=== PATIENT | male | born 1965 | race African-American/Black ===

== ENCOUNTER 2019-05-11 05:14 | Observation (INO) ==
[2019-05-11] MEDS ORDERED: ASPIRIN PO ONE (05:22)
[2019-05-11 06:11] LABS: BASO# 0.01 X1000 (0.0-0.2); BASO% 0.2 % (0.0-0.8); EOS# 0.23 X1000 (0.0-0.7); EOS% 3.8 % (0.0-10.0); HEMATOCRIT 36.1 % (42.0-52.0); HEMOGLOBIN 11.9 g/dL (14.0-18.0); LYMPH# 0.91 X1000 (1.2-3.4); LYMPH% 14.9 % (20.5-51.1); MCV 81.9 FL (81-99); MONO# 0.65 X1000 (0.11-0.59); MONO% 10.6 % (1.7-9.3); MPV 9.4 FL (7.4-10.4); NEUT# 4.31 X1000 (1.4-6.5); NEUT% 70.5 % (42.2-75.2); PLT 249 X1000 (130-400); RBC 4.41 XMIL (4.7-6.1); RDW 15.2 % (11.5-14.5); WBC 6.11 X1000 (4.8-10.8)
[2019-05-11] MEDS ORDERED: NORFLEX IV ONE (06:25)
[2019-05-11] MEDS ORDERED: TORADOL IV ONE (06:25)
--- NOTE | 2019-05-11 06:30 | PROVIDER DOCUMENTATION ---
HPI-Chest Pain - General Chief Complaint: Chest Pain Stated Complaint: CHEST PAIN/NECK/ARM PAIN Time Seen by Provider: 05/11/19 06:09 Source: patient Allergies/Adverse Reactions: Patient Allergies Allergy/AdvReac Type Severity Reaction Status Date / Time No Known Allergies Allergy Verified 02/18/19 10:21 Home Medications: Home Medication List Medication Instructions Recorded Confirmed Last Taken Type Cephalexin [Keflex] 500 mg PO Q8HR #21 cap 11/10/18 Unknown Rx Cyclobenzaprine [Flexeril] 10 mg PO QHS #7 tab 05/11/19 Unknown Rx - History of Present Illness-CP Nature of Presenting Problem: A 53 Y/O MALE PRESENTS WITH C/O LEFT NECK, SHOULDER AND RIB PAIN. STARTED AROUND 1030 PM AND HAS BEEN THERE SINCE. DENIES ANY INJURIES SOB OR FEVER OR CHILLS OR COUGH OR PAIN WITH DEEP BREATHES PER PT HE WAS [facility] THIS STARTED. HURTS TO RAISE LEFT ARM, TURN THE HEAD. IT IS ALSO TENDER TO TOUCH IN HIS LEFT RIBS IN THE AXILLARY AREA. Chest Pain Radiation: reports: neck, shoulders. denies: jaw, arms Quality of Pain: reports: sharp Severity in ED: moderate Onset/Duration: abrupt Timing: still present, getting worse Context/Activities at Onset: reports: vigorous activity Modifying Factors: improves with: immobilization, massage Associated Symptoms: denies: abdominal pain, back pain, diaphoresis, dizziness, fatigue, fever/chills, headache, heartburn, nausea, rash, shortness of breath, swelling/lump in chest, syncope, vomiting, weakness Nitro Today/Relief: no nitro taken today Aspirin Treatment Today: provided by ED Prior Chest Pain/Cardiac Workup: reports: no prior chest pain, no prior cardiac workup Similar Symptoms Previously?: No Recently Seen Here or By Another Healthcare Provider: No Review of Systems - Adult - REVIEW OF SYSTEMS - ADULT Constitutional: reports: no symptoms reported Eyes: reports: no symptoms reported Ears, Nose, Mouth & Throat: reports: no symptoms reported Cardiovascular: reports: see HPI Respiratory: reports: see HPI Gastrointestinal: reports: no symptoms reported Genitourinary: reports: no symptoms reported Musculoskeletal: reports: see HPI Integumentary: reports: no symptoms reported Neurological: reports: no symptoms reported Psychiatric: reports: no symptoms reported Endocrine: reports: no symptoms reported Hematologic/Lymphatic: reports: no symptoms reported Allergic/Immunologic: reports: no symptoms reported Past History - Adult - PAST MEDICAL HISTORY-ADULT Review of Records: reports: Old Records Reviewed, Nursing Assessment Review, Medications Reviewed, Social history reviewed & non-contributory. Major Childhood Illnesses: reports: denies history Cardiovascular: reports: denies history Respiratory: reports: denies history Gastrointestinal: reports: denies history Obstetrical/Gynecological: reports: denies history Genitourinary: reports: denies history Musculoskeletal: reports: denies history Neurological: reports: denies history Endocrine/Immune: reports: denies history Other Conditions: reports: denies history - PRIOR SURGERIES/PROCEDURES Surgical/Procedure History: reports: none - IMMUNIZATION STATUS Childhood Immunizations: See Nurse Assessment Flu Vaccine: See Nurse Assessment - FAMILY HISTORY Family History: diabetes Physical Exam-General - PHYSICAL EXAM-ADULT Initial Vital Signs Reviewed: Yes - CONSTITUTIONAL General Appearance: appears well, alert, mild distress - HEAD, EARS, NOSE, MOUTH & THROAT HENMT: normocephalic/atraumatic, moist mucous membranes, normal ENT inspection, pharynx normal - NECK Neck: supple, normal inspection, limited range of motion, tender lateral (LEFT, TRAPEZIUS DISTRIBUTION). negative: meningismus - RESPIRATORY Respiratory: lungs clear, normal breath sounds, no respiratory distress, no accessory muscle use - CARDIOVASCULAR Cardiovascular: normal peripheral pulses, regular rate, rhythm, no edema, no murmur - GASTROINTESTINAL (ABDOMEN) Abdominal Exam: non tender, soft - MUSCULOSKELETAL Back Exam: no vertebral tenderness Extremity: no pedal edema, no calf tenderness - SKIN Integumentary: warm/dry - NEUROLOGIC Neurologic: grossly normal - PSYCHIATRIC Psych/Mental Status: normal mood/affect, oriented x 3 - HEART Score HEART Score: History: Moderately Suspicious HEART Score: ECG: Normal HEART Score: Age: 45-65 Years HEART Score: Risk Factors for Atherosclerotic Disease: 1 or 2 Risk Factors HEART Score: Troponin: < or = Normal Limit Total HEART Score:: 3 Progress - PLAN OF CARE/RESULTS Progress/Plan/Lab Results: Vital Signs - 8 hr 05/11/19 05:20 05/11/19 05:47 05/11/19 06:03 Temperature 98.4 F Pulse Rate 81 73 71 Respiratory Rate 20 21 Blood Pressure 131/81 139/88 130/87 O2 Sat by Pulse Oximetry 98 100 99 05/11/19 06:10 05/11/19 06:33 05/11/19 06:50 Temperature Pulse Rate 72 68 60 Respiratory Rate 28 H 16 16 Blood Pressure 131/77 O2 Sat by Pulse Oximetry 100 98 99 05/11/19 07:03 Temperature Pulse Rate 74 Respiratory Rate 35 H Blood Pressure 126/84 O2 Sat by Pulse Oximetry 98 Laboratory Results - last 24 hr 05/11/19 05/11/19 05/11/19 05:30 05:30 05:30 WBC 6.11 RBC 4.41 L Hgb 11.9 L Hct 36.1 L MCV 81.9 MCH 27.0 MCHC 33.0 RDW Std Deviation 15.2 H Plt Count 249 MPV 9.4 Neut % (Auto) 70.5 Lymph % (Auto) 14.9 L [place] % (Auto) 10.6 H Eos % (Auto) 3.8 Baso % (Auto) 0.2 Neut # (Auto) 4.31 Lymph # (Auto) 0.91 L [place] # (Auto) 0.65 H Eos # (Auto) 0.23 Baso # (Auto) 0.01 D-Dimer, Quantitative Sodium 144 Potassium 3.8 Chloride 104 Carbon Dioxide 28 Anion Gap 12 BUN 17 Creatinine 1.6 H Estimated GFR/1.73 m2 55 BUN/Creatinine Ratio 11 Glucose 105 H Calculated Osmolality 289 Calcium 9.3 Total Bilirubin 0.32 AST 94 H ALT 109 H Alkaline Phosphatase 128 H Creatine Kinase 218 H Creatine Kinase Index 1.5 CK-MB (CK-2) 3.29 Troponin T < 0.010 Total Protein 7.7 Albumin 3.8 Globulin 3.9 Albumin/Globulin Ratio 1.0 05/11/19 05:30 WBC RBC Hgb Hct MCV MCH MCHC RDW Std Deviation Plt Count MPV Neut % (Auto) Lymph % (Auto) [place] % (Auto) Eos % (Auto) Baso % (Auto) Neut # (Auto) Lymph # (Auto) [place] # (Auto) Eos # (Auto) Baso # (Auto) D-Dimer, Quantitative 0.39 Sodium Potassium Chloride Carbon Dioxide Anion Gap BUN Creatinine Estimated GFR/1.73 m2 BUN/Creatinine Ratio Glucose Calculated Osmolality Calcium Total Bilirubin AST ALT Alkaline Phosphatase Creatine Kinase Creatine Kinase Index CK-MB (CK-2) Troponin T Total Protein Albumin Globulin Albumin/Globulin Ratio Orders Category Date Time Status CHEST-1 VIEW [RAD] Stat Exams 05/11/19 05:21 Completed CBC WITH ELECTRONIC DIFF [HEME] Stat Lab 05/11/19 05:30 Completed CK PROFILE [SP CHEM] Stat Lab 05/11/19 05:30 Completed COMPREHENSIVE METABOLIC PANEL [CHEM] Stat Lab 05/11/19 05:30 Completed D-DIMER [COAG] Stat Lab 05/11/19 05:30 Completed TROPONIN T Stat Lab 05/11/19 05:30 Completed Aspirin Med 05/11/19 05:22 Discontinued 325 mg PO NOW ONE Ketorolac [Toradol] Med 05/11/19 06:25 Discontinued 30 mg IV NOW ONE Ketorolac [Toradol] Med 05/11/19 06:32 Discontinued 60 mg IM NOW ONE Ns 1000 ml IV Bolus X1 Med 05/11/19 07:18 Ordered 0.9% Sodium Chloride Inj [Ns] 1,000 ml IV 999 mls/hr Orphenadrine [Norflex] Med 05/11/19 06:25 Discontinued 60 mg IV NOW ONE EKG [EKG] Stat Ther 05/11/19 05:22 Draft At recheck pt notes that he is still having CP and wants to be admitted. Pt also admits that he has used cocaine as recently as last week. Result Diagrams: 05/11/19 05:30 05/11/19 05:30 - CONSULTS/PCP/HOSPITALIST Notification #1 *Consult/PCP/Hospitalist*: Dr Slaughter Time Discussed: 10:15 Consult Disposition: Will see in ED, Admit - CHANGE OF SHIFT REPORT (ED Provider) 1 Report Given and Care Transferred to:: DR ADAME Time of Transfer: 07:00 Items Pending: Labs Departure - Departure Date of Disposition Decision: 05/11/19 Time of Disposition Decision: 10:19 DIAGNOSIS: Neck pain on left side, Renal insufficiency, Trapezius muscle strain, Chest pain Disposition: ADMITTED INPATIENT 09 Certified Medical Emergency: Emergent Condition: Stable Additional Freetext Instructions: ED Follow Up Instructions: You have been treated by a care provider in the Emergency Department. These instructions are being provided to you so you can have an understanding of how to care for yourself upon discharge. Upon discharge from the Emergency Department, you are responsible for making arrangements for follow-up care by a physician of your choice. Take all prescribed medications as directed. Return to the Emergency Department immediately for any new or worsening symptoms. You may call the Physician Referral phone number at [phone] to obtain a list of Physicians who are taking new patients. Prescriptions: Cyclobenzaprine [Flexeril] 10 mg PO QHS #7 tab Referrals and Follow-Ups: None,PCP [Primary Care Provider] - Discharge Education: Acute Kidney Injury, Adult, Chest Wall Pain, [id number] - Critical Care Note This patient required my direct & personal management of CC.: No Attestation - Physician/ XU Attestation Patient care was provided by Advanced Practice Provider:: No The physician spent face to face time with patient:: Yes Advanced Practice Provider documentation review:: Supervising physician onsite and consulted in the evaluation and care of this patient. The physician did have a face to face encounter with the patient.
[2019-05-11] MEDS ORDERED: TORADOL IM ONE (06:32)
[2019-05-11 06:39] LABS: ALBUMIN 3.8 g/dL (3.5-5.0); CALCIUM 9.3 mg/dL (8.8-10.2); CREATININE 1.6 mg/dL (0.7-1.2); POTASSIUM 3.8 mmol/L (3.5-5.1); TOTAL BILIRUBIN 0.32 mg/dL (0.20-1.00); TOTAL PROTEIN 7.7 g/dL (6.3-8.3)
--- NOTE | 2019-05-11 06:58 | Diag Imaging Result Doc PS360 ---
EXAM: CHEST-1 VIEW 05/11/2019 HISTORY: cp TECHNIQUE: AP portable upright at 0550 COMMENT: The upper lung zones appear clearer than on the previous study of 02/18/2019 but this is probably due to a more lordotic projection. There is an apparent granuloma in the left upper lobe. The heart size and pulmonary vascularity are within normal limits. There is a calcified node in the aorticopulmonary window. IMPRESSION: No acute disease. Electronically signed by Luis Goldman 05/11/2019 6:56 AM
--- NOTE | 2019-05-11 07:10 | EKG Report ---
Test Performed on : 05/11/2019 05:21:07 AM Test Reason : CP Blood Pressure : / mmHG Vent. Rate : 076 BPM Atrial Rate : 076 BPM P-R Int : 176 ms QRS Dur : 086 ms QT Int : 414 ms P-R-T Axes : 069 038 054 degrees QTc Int : 465 ms Normal sinus rhythm. Voltage criteria for left ventricular hypertrophy Abnormal ECG When compared with ECG of 06-JUL-2017 17:49, Nonspecific T wave abnormality no longer evident in Lateral leads Unconfirmed Result
[2019-05-11 07:16] LABS: CK INDEX 1.5 (0.0-2.5); CK-MB 3.29 ng/mL (0.0-5.0)
[2019-05-11] MEDS ORDERED: NS 1,000 ML IV ONE ×2 (07:18→11:42)
[2019-05-11 11:17] LABS: UR AMPHETAMINES MT NONE DETECTED (NONE DETECT); UR BARBITUATES MT NONE DETECTED (NONE DETECT); UR BENZODIAZ MT NONE DETECTED (NONE DETECT); UR CANNABIS MEDTOX NONE DETECTED (NONE DETECT); UR COCAINE MT PRESUMPTIVE POS (NONE DETECT); UR METHADONE MEDTOX NONE DETECTED (NONE DETECT); UR OPIATES MT NONE DETECTED (NONE DETECT); UR OXYCODONE MEDTOX NONE DETECTED (NONE DETECT); UR PCP MEDTOX NONE DETECTED (NONE DETECT)
[2019-05-11 11:25] LABS: CK INDEX 1.3 (0.0-2.5); CK-MB 4.73 ng/mL (0.0-5.0)
[2019-05-11] MEDS ORDERED: FLEXERIL PO PRN (11:42)
[2019-05-11] MEDS ORDERED: NITROGLYCERIN SL PRN (11:42)
[2019-05-11] MEDS ORDERED: TYLENOL PO PRN (11:42)
[2019-05-11] MEDS ORDERED: ZOFRAN IV PRN (11:42)
--- NOTE | 2019-05-11 12:53 | HISTORY AND PHYSICAL ---
PRIMARY CARE PROVIDER: None. CHIEF COMPLAINT: Chest pain, neck and left arm pain. HISTORY OF PRESENT ILLNESS: Mr. 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 This started up in his neck and in the left side of his chest area. He was unable to lift his left arm. This is reproducible pain. He continues to be sore. He denies any shortness of breath, nausea, vomiting, diaphoresis, syncopal episode. He does admit to using cocaine in the last week or so. He does have a positive UDS for cocaine. He has had 2 sets of negative troponins. He was also found to have an acute kidney injury, as well as elevated liver function tests. We will admit him on observation status and rule out for [place]. Set him up for a stress test in the morning, echocardiogram, as well as check hepatitis and right upper quadrant ultrasound. He is not aware of any kidney or liver issues. PAST MEDICAL HISTORY: Denies. SURGICAL HISTORY: Denies. SOCIAL HISTORY: Occasional alcohol. Occasional marijuana. Cocaine use is most recent over the last week. FAMILY HISTORY: Grandfather with hyperlipidemia. MEDICATIONS: None. ALLERGIES: None. PHYSICAL EXAMINATION: VITAL SIGNS: Temperature is 98.4 degrees, heart rate 62, respirations 20, blood pressure 125/82, O2 is 98% on room air. GENERAL: Mr. Carbajal is a 53-year-old male, who is lying on the stretcher in no acute distress. HEENT: Atraumatic, normocephalic. PERRL. NECK: Supple. Trachea midline. CARDIOVASCULAR: S1, S2 appreciated. No murmurs, gallops, rubs noted. RESPIRATORY: Lung sounds clear bilaterally. GI: Flat, soft, nontender, nondistended. Positive bowel sounds 4 quadrants. EXTREMITIES: Negative for edema. Bilateral pedal pulses are palpable. NEUROLOGIC: No focal deficits noted. The patient was A and O x4. Follows commands. Moves all extremities. He was sore to move his left upper extremity, as well as soreness noted to his neck/trapezius area down into his left arm, as well as palpable reproducible chest pain. LABORATORY DATA: White count 6, hemoglobin and hematocrit 11 and 36, platelet count is 249. Sodium 144, potassium 3.8. BUN 17, creatinine 1.6. Blood glucose 105, AST 94, ALT 109, alkaline phosphatase 128. CK 363. CK-MB 1.3. Troponin 2 sets negative. UDS positive for cocaine. DIAGNOSTIC DATA: Chest x-ray showed no acute disease. EKG shows normal sinus rhythm at 76 beats per minute with LVH. ASSESSMENT AND PLAN: 1. Chest pain. Rule out with reproducible musculoskeletal pain in the neck, trapezius, as well as left chest wall and into the side of the left ribs. Two sets of cardiac enzymes have been negative. We will check an echocardiogram, lipid profile, hemoglobin A1c. Continue full-dose aspirin. as well as continue with Flexeril for musculoskeletal pain, nitroglycerin for chest pain. 2. Musculoskeletal pain. See #1. 3. Acute kidney injury on chronic kidney disease, stage IIIA. We will continue with intravenous IV hydration. 4. Elevated transaminitis. Continue with intravenous fluids. Check hepatitis profile and a right upper quadrant ultrasound. 5. Cocaine use and abuse. The patient has been educated on abstinence of cocaine. Further recommendations to follow physician evaluation, laboratory and diagnostic data. Dictated by COOPER Lazcano for Lukas Slaughter MD cc: Lukas Slaughter MD [facility] SYSTEMK[facility]
--- NOTE | 2019-05-11 13:45 | HISTORY AND PHYSICAL ---
ADDENDUM TO HISTORY AND PHYSICAL: I agree with most components of history, physical, assessment and plan. HISTORY: In brief Mr. Carbajal is a 53 years old man with past medical history of acute kidney injury, who came in with chief complaints of left-sided chest pain radiating to shoulder, which was of sudden onset. 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 In the emergency room, he was found to have unremarkable laboratory analysis except for mild transaminitis and acute kidney injury. Noticeably, he was given intravenous Toradol in the emergency room and his urine toxicology was positive for cocaine. SUBJECTIVE: He is still complaining of left pain getting worse on the left lateral position. VITALS: Temperature 98.2 degrees, pulse 53, respiratory rate 15, blood pressure 130/72, is saturating 100% room air. PHYSICAL EXAMINATION: Significant for significant tenderness on the left precordium, left shoulder and painful active range of movement at left shoulder, especially abduction and flexion. LAB: Remarkable for normocytic anemia, acute kidney injury and transaminitis. His troponins have been negative x2. IMAGING: Chest x-ray did not have any acute disease. EKG had normal sinus rhythm. ASSESSMENT AND PLAN: 1. Atypical chest pain, likely musculoskeletal spasm. Continue cyclobenzaprine as needed for chest pain. Follow up echocardiogram to rule out to evaluate ventricular systolic function. He does not have a known essential hypertension, diabetes, hypercholesterolemia. His family history did have essential hypertension and diabetes. His likelihood of coronary artery disease is low. Considering his cocaine abuse, which he claims to have used at least 5 days ago, I would avoid beta blockers for now. He was counseled about not using his cocaine in future. 2. Acute kidney injury versus chronic kidney disease. I will give him intravenous fluids and follow up kidney function tomorrow. 3. Transaminitis could be related to intravenous drug use. I will follow up with hepatitis panel and ultrasound of right upper quadrant. DISPOSITION: I will monitor him for 24 hours with the repeat liver function tests, repeat kidney function test and echocardiogram. Based on that, I would anticipate discharge in next 24 to 48 hours. Plan of care discussed the patient and his mother at bedside. All of their questions have been answered. cc: Lukas Slaughter MD
--- NOTE | 2019-05-11 14:39 | Diag Imaging Result Doc PS360 ---
EXAM: US GB < RUQ (LIMITED) 05/11/2019 HISTORY: Elevated LFT TECHNIQUE: Right upper quadrant ultrasound COMMENT: There is no evidence of biliary dilatation the common bile duct measuring less than 4 mm. The gallbladder is not distended and there are no stones. The visualized portions of the aorta and inferior vena cava are within normal limits. The right kidney is hydronephrotic with a resistive index of 0.6 which is within the normal range. The visualized portion of the aorta and inferior vena cava are within normal limits. The pancreas is obscured. IMPRESSION: Hydronephrosis on the right of uncertain etiology. This may be due to chronic reflux. Clinical correlation is recommended. The normal resistive index is not suggestive of acute obstruction. Electronically signed by Luis Goldman 05/11/2019 2:37 PM
[2019-05-11] MEDS ORDERED: ZOSTRIX TOP PRN (18:21)
--- NOTE | 2019-05-11 21:01 | ECHO REPORT ---
ORDER DATE: 05/11/2019 INDICATION: Chest pain. FINDINGS: 1. The right atrium appears normal in size. 2. Mild tricuspid regurgitation. Insufficient data to estimate RV systolic pressure. 3. Normal RV size and systolic function. 4. Mild pulmonic insufficiency. 5. Suggestion of severe left atrial enlargement with a volume index of 57. 6. No mitral prolapse. Mild mitral regurgitation. 7. Normal LV size, end-diastolic dimension of 4.8. Normal wall thicknesses with a posterior and interventricular septal wall thickness of 0.9 cm each. Borderline-normal to normal LV systolic function with an estimated EF of 50% to 55% with normal wall motion. 8. The aortic valve opens well. It is trileaflet. No evidence of stenosis or insufficiency. 9. The aorta appears normal in visualized segments. 10. No pericardial effusion identified. cc: Leonid Rushing MD
[2019-05-12] MEDS ORDERED: PRILOSEC PO SCH (07:00)
[2019-05-12 07:19] LABS: BASO# 0.02 X1000 (0.0-0.2); BASO% 0.6 % (0.0-0.8); EOS% 5.9 % (0.0-10.0); HEMATOCRIT 33.1 % (42.0-52.0); LYMPH# 0.69 X1000 (1.2-3.4); LYMPH% 20.3 % (20.5-51.1); MCH 26.8 PG (27-31); MCHC 33.2 g/dL (33-37); MCV 80.7 FL (81-99); MONO# 0.32 X1000 (0.11-0.59); MONO% 9.4 % (1.7-9.3); NEUT# 2.17 X1000 (1.4-6.5); NEUT% 63.8 % (42.2-75.2); PLT 207 X1000 (130-400); RDW 15.1 % (11.5-14.5)
[2019-05-12 07:44] LABS: AGAP 7; ALB/GLOB RATIO 0.8; ALKALINE PHOSPHATASE 114 U/L (32-122); BUN 15 mg/dL (8-22); CALCIUM 8.6 mg/dL (8.8-10.2); CHLORIDE 104 mmol/L (98-107); CHOLESTEROL 149 mg/dL (0-200); COSMO 278; CREATININE 1.4 mg/dL (0.7-1.2); ESTIMATED GFR > 60; GLUCOSE 121 mg/dL (70-104); GOT 90 U/L (10-34); GPT 99 U/L (10-44); HDL 60 mg/dL (35-55); HEMOGLOBIN A1C 5.7 % (4.8-6.0); LDL 72 mg/dL; POTASSIUM 3.6 mmol/L (3.5-5.1); SODIUM 138 mmol/L (136-145); TCO2 27 mmol/L (25-35); TOTAL PROTEIN 6.6 g/dL (6.3-8.3); TRIGLYCERIDES 84 mg/dL (39-160); VLDL 17 mg/dL
--- NOTE | 2019-05-12 08:14 | EKG Report ---
Test Performed on : 05/12/2019 06:56:21 AM Test Reason : CP FU Blood Pressure : / mmHG Vent. Rate : 060 BPM Atrial Rate : 060 BPM P-R Int : 188 ms QRS Dur : 104 ms QT Int : 462 ms P-R-T Axes : 068 050 045 degrees QTc Int : 462 ms Normal sinus rhythm. Moderate voltage criteria for LVH, may be normal variant Borderline ECG When compared with ECG of 11-MAY-2019 05:21, (Unconfirmed) No significant change was found Confirmed by Pilo Ling MD ([id number]) on 05/12/2019 4:54:34 PM
[2019-05-12] MEDS ORDERED: ASPIRIN PO SCH (09:00)
[2019-05-12 10:38] VITALS: BP 117/63
--- NOTE | 2019-05-13 12:57 | DISCHARGE SUMMARY ---
ADMISSION DATE: 05/11/2019 DISCHARGE DATE: 05/12/2019 DISCHARGE DISPOSITION: Home. DISCHARGE CONDITION: Patient is alert and oriented x3. His chest pain has significantly decreased. He is denying any shortness of breath. We discussed about getting repeat liver function test as an outpatient. We also discussed about following up with stomach doctor, and discussed about hepatitis panel results, which is pending at the moment. I answered all of his questions. We also discussed about outpatient urology follow-up. DISCHARGE DIAGNOSES: 1. Atypical chest pain, likely musculoskeletal. 2. Acute kidney injury. 3. Right hydronephrosis of unclear etiology, likely due to chronic reflux. 4. Cocaine abuse. 5. New diagnosis of hepatitis C. DISCHARGE INSTRUCTIONS: He was provided comprehensive metabolic panel slip. He was advised to follow up with his regular doctor in 2 weeks. He was advised to follow up with Gastroenterology in 2 weeks and discuss about anemia workup and age-appropriate colon cancer screening. He was advised to follow up with Urology upon 2 weeks. In fact, I have requested nursing team to help him set up an appointment to discuss about right-sided hydronephrosis and further workup. He was advised to stop cocaine use. VITALS: At the time of discharge, temperature 97.6 degrees, pulse 58, respiratory rate 20, blood pressure 110/60, saturating 100% on room air. PHYSICAL EXAMINATION: General: Does not appear in acute distress. A well- built man. Oral cavity is moist. Lungs: Air entry bilaterally equal. No wheeze, rhonchi, crackles. Cardiovascular: S1, S2 normal. No murmur or gallop. No chest wall tenderness on active or passive range of shoulder joint. No tenderness on direct palpation of left chest. Abdomen: Soft, nontender. Extremities: No lower extremity edema. Neurologic: He is alert and oriented x3. SIGNIFICANT LABS: During hospital admission and discharge, hemoglobin 11.9, platelet 207, potassium 3.6, creatinine 1.4, AST 90, ALT 99, alkaline phosphatase 114. Urine toxicology positive for urine cocaine. LDL cholesterol 72, total cholesterol 149. MICROBIOLOGY: Significant micro during hospital admission: No microbiological data significant. IMAGING: During hospital admission, chest x-ray did not have any acute disease. Abdomen ultrasound had hydronephrosis on the right side of uncertain etiology, which was thought to be due to chronic reflux. Echocardiogram had suggested normal left ventricular size, borderline normal to normal left ventricular systolic function with ejection fraction of 50 to 55 percent with normal wall motion. EKG on admission had normal sinus rhythm and voltage criteria for left ventricular hypertrophy. HOSPITAL COURSE SUMMARY: Mr. Carbajal is a 53-year-old man, who came in with sudden onset left-sided chest pain when he was at workplace where he bent down to lift up something and suddenly started experiencing left-sided chest pain. His chest pain was radiating and affecting his left shoulder; that is why he came to the hospital. In the emergency room his vitals were unremarkable. Hospitalist team was consulted for further management. His urine toxicology was positive for cocaine. He was admitted on the telemetry unit. His cardiac enzymes were negative x2. Troponins were negative x2. EKG had normal sinus rhythm. Echocardiogram had ejection fraction of 55% without any regional wall motion abnormalities. He was started on muscle relaxants, following which his pain has significantly decreased. It was thought that his chest pain was related to musculoskeletal and he was discharged on cyclobenzaprine. Abdominal ultrasound was performed for abnormal liver function tests at the time of admission, which was thought to be related to his cocaine use, and after intravenous fluids it was already getting better. He was provided repeat liver function test slip. Hepatitis panel is pending and he is advised to follow up with his regular doctor and discuss about the results. He was also found to have acute kidney injury, which improved after intravenous fluids. His creatinine also improved from 1.6 on presentation to 1.4, and ultrasound of abdomen had right- sided hydronephrosis of unclear etiology. Since his acute kidney injury had improved, it was decided to have him follow up Urology as an outpatient to have a workup for chronic hydronephrosis affecting the right. TIME SPENT: More than 30 minutes was spent discharging this patient. At the time of discharge, all of his questions were answered. His lipid panel and hemoglobin A1c were within normal limits. DISCHARGE MEDICATION: Cyclobenzaprine 5 mg every 8 hours as needed for muscle pain. cc: Lukas Slaughter MD ADDENDUM: I tried calling patient to inform him about his hepatitis C positive results. However, he did not pick twice. His Mail box is full. I tried calling his mother but she did not pick either. I have left a voice message for her to call us back . ADDEDUM: I was able to reach to his mother. I explained to her about positive hepatitis C test. I explained to her that Mr. Carbajal would need a repeat liver function test as well as further testing for his positive hepatitis C test. I advised her that Mr. Carbajal should find a primary care doctor and sania an appointment. I allowed her to ask all the questions she had regarding and answered all of them. HAYLEE
[2019-05-13 13:46] LABS: HEPATITIS PROFILE ACUTE SEE COMMENTS
== END 2019-05-12 15:05 | disposition home or self-care (01) ==
LOC: 3N 05:14 → ED 05:14
PROVIDERS: ATTEND Internal Medicine
CPT/HCPCS: 71010; 71045; 76705; 80053; 80061; 80074; 80101; 80301; 80306; 80307; 80324; 80345; 80346; 80353; 80358; 80361; 80365; 82550; 82553; 83036; 83735; 83992; 84484; 85025; 85379; 93005; 93010; 93306; 94761; A9270; G0431; G0434; G0479; G0480; J1885; J2360 ×2; J7030